=== PATIENT | male | born 1990 | race Caucasian/White ===

== ENCOUNTER 2017-08-08 15:11 | Emergency (ER) | payer MEDICAID ==
[2017-08-08 15:11] VITALS: BMI 26.6
[2017-08-08 15:23] VITALS: TEMP 97.4
--- NOTE | 2017-08-08 15:28 | ED PDOC ---
HPI: Chest Pain Time Seen by Provider: 08/08/17 15:27 Chief Complaint (Nursing): Chest Pain Chief Complaint (Provider): chest pain History Per: Patient Past Medical History Vital Signs: Last Vital Signs Temp 97.4 F L 08/08/17 15:21 Pulse 68 08/08/17 15:21 Resp 16 08/08/17 15:21 BP 127/72 08/08/17 15:21 Pulse Ox 100 08/08/17 15:21 - Medical History PMH: Asthma (per mother) - Family History Family History: States: Unknown Family Hx - Home Medications Home Medications: Ambulatory Orders Medication Instructions Recorded No Known Home Med 12/08/15 - Allergies Allergies/Adverse Reactions: Allergies Allergy/AdvReac Type Severity Reaction Status Date / Time Penicillins Allergy RASH Verified 08/08/17 15:20 dairy Allergy URTICARIA Uncoded 08/08/17 15:20 oatmeal Allergy RASH Uncoded 08/08/17 15:20 - ECG O2 Sat by Pulse Oximetry: 100 Disposition - Disposition
[2017-08-08] MEDS ORDERED: Alum-Mag Hydrox-Simethicone Susp (30 mL) PO ONE (15:41)
--- NOTE | 2017-08-08 15:46 | ED PDOC ---
HPI: General Adult Time Seen by Provider: 08/08/17 15:27 Chief Complaint (Nursing): Chest Pain Chief Complaint (Provider): Chest discomfort History Per: Patient History/Exam Limitations: no limitations Onset/Duration Of Symptoms: Days (x3) Current Symptoms Are (Timing): Still Present Additional Complaint(s): Kamron Cuba is a 27 year old male, with a past medical history of asthma, who presents to the emergency department complaining of a constant chest discomfort onset for x3 days. Patient states the discomfort sometimes feels like tightness and is more prominent when he swallows. He did not take any medication, the discomfort is not worst before or after eating. He denies doing any heavy lifting. He denies any fever, chills, nausea, vomit, diarrhea, headache, arm pain, chest pain or shortness of breath. No further medical complaints. PMD: None provided. Past Medical History Reviewed: Historical Data, Nursing Documentation, Vital Signs Vital Signs: Last Vital Signs Temp 97.4 F L 08/08/17 15:21 Pulse 64 08/08/17 15:33 Resp 22 08/08/17 15:33 BP 127/72 08/08/17 15:21 Pulse Ox 100 08/08/17 16:52 - Medical History PMH: Asthma (per mother) - Surgical History Surgical History: No Surg Hx - Family History Family History: States: Unknown Family Hx - Living Arrangements Living Arrangements: With Family - Social History Current smoker - smoking cessation education provided: Yes (Heavy smoker >10 cigarettes daily) Alcohol: Social Drugs: Cannabis - Home Medications Home Medications: Ambulatory Orders Medication Instructions Recorded Famotidine [Pepcid] 20 mg PO BID #28 tab 08/08/17 - Allergies Allergies/Adverse Reactions: Allergies Allergy/AdvReac Type Severity Reaction Status Date / Time Penicillins Allergy RASH Verified 08/08/17 15:20 dairy Allergy URTICARIA Uncoded 08/08/17 15:20 oatmeal Allergy RASH Uncoded 08/08/17 15:20 Review of Systems ROS Statement: Except As Marked, All Systems Reviewed And Found Negative Constitutional: Negative for: Fever, Chills Cardiovascular: Positive for: Other (chest discomfort). Negative for: Chest Pain Respiratory: Negative for: Cough, Shortness of Breath Gastrointestinal: Negative for: Nausea, Vomiting, Diarrhea Musculoskeletal: Negative for: Arm Pain Neurological: Negative for: Headache Physical Exam - Reviewed Nursing Documentation Reviewed: Yes Vital Signs Reviewed: Yes - Physical Exam Appears: Positive for: Well, Non-toxic, No Acute Distress Head Exam: Positive for: ATRAUMATIC, NORMAL INSPECTION, NORMOCEPHALIC Skin: Positive for: Normal Color, Warm, Dry Eye Exam: Positive for: Normal appearance, EOMI, PERRL ENT: Positive for: Normal ENT Inspection Neck: Positive for: Painless ROM, Supple Cardiovascular/Chest: Positive for: Regular Rate, Rhythm. Negative for: Murmur Respiratory: Positive for: Normal Breath Sounds (clear to auscultation). Negative for: Wheezing, Respiratory Distress Gastrointestinal/Abdominal: Positive for: Normal Exam, Soft. Negative for: Tenderness, Guarding, Rebound Back: Positive for: Normal Inspection. Negative for: L CVA Tenderness, R CVA Tenderness, Vertebral Tenderness Extremity: Positive for: Normal ROM (all extremities). Negative for: Tenderness , Deformity, Swelling Neurologic/Psych: Positive for: Alert, Oriented - Laboratory Results Result Diagrams: 08/08/17 16:07 08/08/17 16:07 - ECG O2 Sat by Pulse Oximetry: 100 (RA) Pulse Ox Interpretation: Normal Medical Decision Making Medical Decision Making: Initial Impression: Chest discomfort Initial Plan: --EKG --BMP --Drug screen, Urine --Troponin I --CBC w/ differential --Chest two views (PA/LAT) [RAD] --Maalox Plus 30 ml PO --Reevaluation 16:17 CXR FINDINGS: LINES AND TUBES: None. LUNG AND PLEURA: The lungs are hyperinflated and there is peribronchial thickening with chronic changes in both lungs. No focal consolidation. HEART AND MEDIASTINUM: The heart is not enlarged. The hilar and mediastinal contours are within normal limits. SKELETAL STRUCTURES: The bony structures are within normal limits for the patient's age. VISUALIZED UPPER ABDOMEN: Normal. OTHER FINDINGS: None. IMPRESSION: No active pulmonary disease. COPD. Scribe Attestation: Documented by Yordan Marquis, acting as a scribe for Leni Erickson MD Provider Scribe Attestation: All medical record entries made by the Scribe were at my direction and personally dictated by me. I have reviewed the chart and agree that the record accurately reflects my personal performance of the history, physical exam, medical decision making, and the department course for this patient. I have also personally directed, reviewed, and agree with the discharge instructions and disposition. 4.50p - patient's symptoms are GI in nature. He feels better after antacid and is hungry. His lady friend has brought him food from [employer]. Disposition - Clinical Impression Clinical Impression: Acid reflux, Atypical chest pain - Disposition Referrals: [facility] [Outside] [email or web address] [Outside] [facility] [Outside] Disposition Time: 16:56 Condition: STABLE Prescriptions: Famotidine [Pepcid] 20 mg PO BID #28 tab Instructions: Acid Reflux (Gastroesophageal Reflux Disease), Adult (DC) Forms: [email or web address] (Thai)
[2017-08-08 16:12] LABS: BASO % 0.7 % (0.0-2.0); EOS # 0.1 K/uL (0.0-0.7); EOS % 1.9 % (0.0-4.0); HEMOGLOBIN 15.4 g/dL (12.0-18.0); LYMPH # 2.3 K/uL (1.0-4.3); LYMPH % 31.8 % (20.0-40.0); MEAN CELL VOLUME 84.7 fl (80.0-94.0); MEAN CORPUSCULAR HEMOGLOBIN 28.8 pg (27.0-31.0); MEAN PLATELET VOLUME 8.2 fl (7.2-11.7); MONO # 0.6 K/uL (0.0-0.8); MONO % 8.5 % (0.0-10.0); NEUT # 4.1 K/uL (1.8-7.0); NEUT % 57.1 % (50.0-75.0); NRBC % 0.3 % (0.0-0.0); RBC 5.35 Mil/uL (4.40-5.90); WHITE BLOOD COUNT 7.2 K/uL (4.8-10.8)
--- NOTE | 2017-08-08 16:19 | RAD ---
HISTORY: COMPARISON: No prior. TECHNIQUE: Chest PA and lateral FINDINGS: LINES AND TUBES: None. LUNG AND PLEURA: The lungs are hyperinflated and there is peribronchial thickening with chronic changes in both lungs. No focal consolidation. HEART AND MEDIASTINUM: The heart is not enlarged. The hilar and mediastinal contours are within normal limits. SKELETAL STRUCTURES: The bony structures are within normal limits for the patient's age. VISUALIZED UPPER ABDOMEN: Normal. OTHER FINDINGS: None. IMPRESSION: No active pulmonary disease. COPD.
[2017-08-08 16:30] LABS: OPIATES, UR NEGATIVE (NEGATIVE)
[2017-08-08 16:31] LABS: BLOOD UREA NITROGEN 19 mg/dl (9-20); CALCIUM 9.4 mg/dL (8.4-10.2); GFR AFRICAN-AMERICAN > 60; GFR NON-AFRICAN AMERICAN > 60
[2017-08-08 16:42] LABS: BARBITURATES, UR NEGATIVE (NEGATIVE); BENZODIAZEPINES, UR NEGATIVE (NEGATIVE); PHENCYCLIDINE, UR NEGATIVE (NEGATIVE)
[2017-08-08 17:15] VITALS: BP 108/58; PULSE 78; RESP 19; O2SAT 97
--- NOTE | 2017-08-10 18:22 | CARD ---
APPROVED REPORT EKG Measurement Heart [id number] <Conclusion> Normal sinus rhythm Normal ECG
== END 2017-08-08 17:13 | disposition home or self-care (01) ==
LOC: H.ER 15:11
DX: K21.9 Gastro-esophageal reflux disease without esophagitis (principal); R07.89 Other chest pain; F17.210 Nicotine dependence, cigarettes, uncomplicated; J44.9 Chronic obstructive pulmonary disease, unspecified; Z88.0 Allergy status to penicillin